=== PATIENT | male | born 1950 | race Caucasian/White ===

== ENCOUNTER 2017-05-12 06:35 | Day surgery (SDC) | payer MEDICARE, OTHER ==
[2017-05-12] MEDS ORDERED: Sodium Chloride 0.9% 1,000 ML IV SCH (07:15)
[2017-05-12] MEDS ORDERED: fentaNYL 100 MCG/2 ML SDV ONE (07:42)
[2017-05-12] MEDS ORDERED: Propofol 200 MG/20 ML SDV ONE (07:42)
[2017-05-12] MEDS ORDERED: Midazolam 1 MG/ML 2 ML SDV ONE (07:42)
--- NOTE | 2017-05-12 11:38 | OR ---
DATE OF PROCEDURE: 05/12/2017 PROCEDURE: Colonoscopy. FINDINGS: 1. Mass at 65 cm (biopsied x8 using cold biopsy forceps). 2. Tattooed at the mass x4 using Violetta ink. COMPLICATION: None. LOSS PREVENTION AND SAFETY MANAGER: None. PREOPERATIVE DIAGNOSIS: Family history of colorectal cancer. POSTOPERATIVE DIAGNOSIS: Family history of colorectal cancer. RISKS: Risks, benefits, alternatives, and limitations including, but not limited to infection, bleeding, and perforation were explained to the patient who wished to proceed. PROCEDURE IN DETAIL: The patient was placed in left lateral decubitus position. Digital rectal exam was performed without abnormality. The scope was introduced and advanced atraumatically to the ileocecal valve. The scope was brought back, and at 65 cm, the mass, which was approximately two-thirds of the circumference, was noted. It was concerning for malignancy and was biopsied multiple times, as described above. Violetta ink was tattooed in all 4 quadrants around it. The scope was brought back and retroflexed. No other abnormalities, except for very minor diverticulosis. The patient tolerated the procedure well. Sandip Kee MD /[id number]
== END 2017-05-12 09:20 | disposition home or self-care (01) ==
LOC: JP.SDS 06:35
PROVIDERS: ATTEND Surgery
DX: Z12.11 Encounter for screening for malignant neoplasm of colon (principal); C18.9 Malignant neoplasm of colon, unspecified; K57.30 Diverticulosis of large intestine without perforation or abscess without bleeding; I10 Essential (primary) hypertension; K21.9 Gastro-esophageal reflux disease without esophagitis; F32.9 Major depressive disorder, single episode, unspecified; E66.9 Obesity, unspecified; Z80.0 Family history of malignant neoplasm of digestive organs
CPT/HCPCS: 45380; 45381; 88305; J2250; J2704; J3010; J7040; 81301; 88341; 88342; 88381; J7030

== ENCOUNTER 2017-06-09 09:41 | Inpatient (IN) | payer MEDICARE, OTHER ==
[~2017-06-09 09:41] MED LIST: Dexamethasone 4 MG/ML SDV ONE; Neostigmine Methylsulfate 1 MG/ML 5 ML Syringe ONE; Ondansetron 4 MG/2 ML SDV ONE; Propofol 200 MG/20 ML SDV ONE; Rocuronium 50 MG/5 ML Vial ONE; Sodium Chloride 0.9% 10 ML ONE; Succinylcholine/Normal Saline 200 MG/10 ML Syringe ONE; fentaNYL 100 MCG/2 ML SDV ONE; fentaNYL 250 MCG/5 ML SDV ONE
[2017-06-09] MEDS ORDERED: Celecoxib 200 MG Cap PO ONE (10:00)
[2017-06-09] MEDS ORDERED: Acetaminophen 500 MG Tab PO ONE (10:00)
[2017-06-09] MEDS ORDERED: Scopolamine 1.5 MG Transdermal Patch TRDERM SCH (10:00)
[2017-06-09] MEDS ORDERED: Gabapentin 300 MG Cap PO ONE (10:00)
[2017-06-09] MEDS ORDERED: Sodium Chloride 0.9% 1,000 ML IV SCH ×2 (10:30→12:30)
[2017-06-09] MEDS ORDERED: Naloxone 0.4 MG/ML SDV IVPUSH PRN ×2 (10:30→22:57)
[2017-06-09] MEDS ORDERED: Midazolam 1 MG/ML 2 ML SDV ONE (11:04)
[2017-06-09] MEDS: ceFAZolin 2 GM in Premix Bag 1 BAG IV ONE ×2 (11:11→11:48)
[2017-06-09] MEDS ORDERED: metroNIDAZOLE/Normal Saline 500 MG in Premix Bag 1 BAG IV ONE (11:30)
[2017-06-09] MEDS ORDERED: Docusate Sodium 100 MG Cap PO PRN (12:10)
[2017-06-09] MEDS ORDERED: Promethazine 25 MG/ML SDV IM PRN (12:10)
[2017-06-09] MEDS ORDERED: fentaNYL 250 MCG/5 ML SDV ONE (12:24)
[2017-06-09] MEDS ORDERED: Lactated Ringers 1,000 ML ONE (12:48)
[2017-06-09] MEDS: hydrOXYzine HCl 100 MG/2 ML SDV IM PRN (14:08)
[2017-06-09] MEDS: fentaNYL 2,500 MCG in Sodium Chloride 0.9% 200 ML EPIDUR SCH (17:32)
[2017-06-09] MEDS: Tamsulosin 0.4 MG Cap.ER PO SCH (20:33)
[2017-06-09] MEDS ORDERED: Tamsulosin 0.4 MG Cap.ER PO SCH (21:00)
[2017-06-09] MEDS ORDERED: Naloxone 0.4 MG/ML SDV IVPUSH STA (22:55)
[2017-06-10] MEDS ORDERED: Naloxone 0.4 MG/ML SDV IVPUSH PRN (08:13)
[2017-06-10] MEDS: fentaNYL 2,500 MCG in Sodium Chloride 0.9% 200 ML EPIDUR SCH (08:21)
[2017-06-10] MEDS ORDERED: diphenhydrAMINE 50 MG/ML SDV IVPUSH PRN (10:44)
--- NOTE | 2017-06-10 10:59 | PN ---
DATE OF SERVICE: 06/10/2017 SUBJECTIVE: The patient is doing very well today. Pain is controlled. No nausea, vomiting, shortness of breath, or chest pain. OBJECTIVE: VITAL SIGNS: Stable. Temperature 96.8, blood pressure 123/64, pulse 87, respirations 16, and 93% on 2 L. HEENT: Pupils are equal. CARDIOVASCULAR: Regular rhythm and rate. RESPIRATORY: Lungs clear to consultation bilaterally. ABDOMEN: Bowel sounds positive. Dressing intact. EXTREMITIES: Full range of motion. LABORATORY RESULTS: White blood cell count of 15.9 and hemoglobin 11. Basic metabolic panel is normal. ASSESSMENT: Status post colon resection. PLAN: We will continue on the fast-track protocol. We will continue with his epidural. Continue with the Flomax, Entereg, and Senokot. Start . Physical Therapy to see today. Sandip Kee MD /[id number]
[2017-06-10] MEDS: Bisacodyl 5 MG Tab PO SCH ×2 (11:33→21:30)
[2017-06-10] MEDS: Sennosides 8.6 MG Tab PO SCH ×2 (11:33→21:30)
[2017-06-10] MEDS: hydrOXYzine HCl 100 MG/2 ML SDV IM PRN (12:48)
[2017-06-10] MEDS ORDERED: Calcium Carbonate 500 MG Tab.Chew PO ONE (18:43)
[2017-06-10] MEDS: Tamsulosin 0.4 MG Cap.ER PO SCH (21:30)
[2017-06-11] MEDS: hydrOXYzine HCl 100 MG/2 ML SDV IM PRN ×2 (01:01→08:29)
[2017-06-11] MEDS: Calcium Carbonate 500 MG Tab.Chew PO PRN ×2 (01:25→08:37)
[2017-06-11] MEDS: Sennosides 8.6 MG Tab PO SCH ×2 (08:37→20:16)
[2017-06-11] MEDS: Bisacodyl 5 MG Tab PO SCH ×2 (08:37→20:16)
[2017-06-11] MEDS: fentaNYL 2,500 MCG in Sodium Chloride 0.9% 200 ML EPIDUR SCH (08:48)
[2017-06-11] MEDS ORDERED: Acetaminophen 1,000 MG in Premix Bag 1 BAG IV PRN (09:12)
[2017-06-11] MEDS ORDERED: Magnesium Hydroxide 400 MG/5 ML Susp 30 ML Cup PO PRN (09:16)
[2017-06-11] MEDS ORDERED: fentaNYL 100 MCG/2 ML SDV IVPUSH PRN (09:32)
[2017-06-11] MEDS: Acetaminophen/oxyCODONE 325-10 MG Tab PO PRN ×2 (09:54→20:15)
[2017-06-11] MEDS: Sodium Chloride 0.9% 1,000 ML IV SCH ×2 (10:07→23:28)
[2017-06-11] MEDS ORDERED: Cyclobenzaprine 10 MG Tab PO PRN (10:56)
[2017-06-11] MEDS: Sertraline 50 MG Tab PO SCH (11:18)
[2017-06-11] MEDS: Fluticasone Propionate Nasal Spray 16 GM Bottle NASBOTH SCH (11:20)
[2017-06-11] MEDS: amLODIPine 5 MG Tab PO SCH (11:20)
[2017-06-11] MEDS: Albuterol/Ipratropium 3.0-0.5 MG/3 ML Neb Soln NEB PRN ×2 (14:30→20:16)
[2017-06-11] MEDS: Simvastatin 20 MG Tab PO SCH (20:16)
[2017-06-11] MEDS: Tamsulosin 0.4 MG Cap.ER PO SCH (20:16)
[2017-06-11] MEDS: Enoxaparin 40 MG/0.4 ML Syringe SUBCUT SCH (20:16)
[2017-06-12] MEDS: Acetaminophen/oxyCODONE 325-10 MG Tab PO PRN ×3 (02:46→20:42)
[2017-06-12] MEDS: Albuterol/Ipratropium 3.0-0.5 MG/3 ML Neb Soln NEB PRN ×2 (07:08→19:29)
[2017-06-12] MEDS: Bisacodyl 5 MG Tab PO SCH (08:19)
[2017-06-12] MEDS: Fluticasone Propionate Nasal Spray 16 GM Bottle NASBOTH SCH (08:19)
[2017-06-12] MEDS: Sertraline 50 MG Tab PO SCH (08:24)
[2017-06-12] MEDS: amLODIPine 5 MG Tab PO SCH (08:24)
[2017-06-12] MEDS: Sennosides 8.6 MG Tab PO SCH ×2 (08:28→20:41)
[2017-06-12] MEDS ORDERED: Furosemide 20 MG/2 ML VIAL IVPUSH ONE (12:15)
--- NOTE | 2017-06-12 13:06 | PN ---
DATE OF SERVICE: 06/11/2017 SUBJECTIVE: The patient is doing very well. Pain is well controlled. No nausea, vomiting, shortness of breath, or chest pain. The patient is having bowel movements, and the pain is well controlled. OBJECTIVE: VITAL SIGNS: Stable. CARDIOVASCULAR: Regular in rate. RESPIRATORY: Lungs clear to consultation bilaterally. ABDOMEN: Bowel sounds positive. Incision healing well. ASSESSMENT: Status post hemicolectomy. PLAN: We will work on increasing diet and activity today. We will start his home medications and continue to work on his minimal oxygen desaturation which includes a chest x- ray today. Sandip Kee MD /[id number]
[2017-06-12] MEDS: Calcium Carbonate 500 MG Tab.Chew PO PRN (18:43)
[2017-06-12] MEDS: Enoxaparin 40 MG/0.4 ML Syringe SUBCUT SCH (20:41)
[2017-06-12] MEDS: Simvastatin 20 MG Tab PO SCH (20:41)
[2017-06-12] MEDS: Tamsulosin 0.4 MG Cap.ER PO SCH (20:41)
[2017-06-13] MEDS: Fluticasone Propionate Nasal Spray 16 GM Bottle NASBOTH SCH (09:54)
[2017-06-13] MEDS: Sertraline 50 MG Tab PO SCH (09:55)
[2017-06-13] MEDS: amLODIPine 5 MG Tab PO SCH (09:56)
[2017-06-13] MEDS: Sennosides 8.6 MG Tab PO SCH (09:56)
[2017-06-13] MEDS: Acetaminophen/oxyCODONE 325-10 MG Tab PO PRN (13:39)
--- NOTE | 2017-06-13 20:50 | PN ---
DATE OF SERVICE: 06/13/2017 SUBJECTIVE: The patient is doing very well today. He requests to leave. His pain is well controlled. No nausea, vomiting, shortness of breath, or chest pain. OBJECTIVE: VITAL SIGNS: Stable. He is afebrile per nursing report. CARDIOVASCULAR: Regular rhythm and rate. RESPIRATORY: Lungs clear to consultation bilaterally. ABDOMEN: Bowel sounds positive. Incision is healing well. ASSESSMENT: Status post colon resection. PLAN: The patient is still on 1 L of oxygen, therefore the plan would be, we will discontinue all oxygen today and see how his saturations are affected. Both, the patient, nursing staff, and objective identifiers show that he continues to show significant improvement with respect to his oxygen level. The patient request to leave; however, at this point, we will keep him around for the day and see if his saturations remain greater than 90%. If not, he may remain to stay. If he does go home today, he was instructed on signs and symptoms of respiratory failure and calling 911 or contact the emergency room immediately. He understands these risks and we will evaluate him later today. Sandip Kee MD /[id number]
--- NOTE | 2017-06-14 09:42 | PN ---
DATE OF SERVICE: 06/12/2017 SUBJECTIVE: The patient continues to do well except for requirement to keep 2 L of oxygen. At present, no nausea, vomiting, shortness of breath, or chest pain. OBJECTIVE: VITAL SIGNS: Stable. He is afebrile. CARDIOVASCULAR: Regular rhythm and rate. RESPIRATORY: Lungs are clear to consultation bilaterally. ABDOMEN: Bowel sounds positive. Incision is healing well. No distention, rebound, or guarding. ASSESSMENT: Status post hemicolectomy. PLAN: We will work on incentive spirometry. Have Respiratory Therapy see today. Recheck his laboratories. His chest x-ray was good. We will continue to delineate this as acceptable, but low saturations, and once we determined the etiology of this, he probably will be discharged. Sandip Kee MD /[id number]
--- NOTE | 2017-06-14 10:39 | DISCH ---
DISCHARGE DIAGNOSIS: Status post colon resection. SUMMARY OF HOSPITAL COURSE: A pleasant 67-year-old male who underwent an uneventful hemicolectomy. On postoperative day 1, he remained stable and had epidural for pain. The patient underwent the enhanced recovery after surgery protocol. Also, on postop day 1, he is tolerating a regular diet. For the next 2 days, he continued to progress and advance. His epidural was discontinued on postop day 2, and the patient was treated with p.o. pain medications. He continued to have significant improvement. The patient did have marginal oxygen saturations, which is essentially 1 to 2 L of oxygen requirement to keep his saturations greater than 90%. On his last hospital day, the patient was kept for approximately 8 hours without oxygen and did not develop any desaturation. At this point, he was determined as safe to be discharged. However, he was instructed with any shortness of breath, he is to call 911 immediately. The patient understands these risks along with his family and prefers to leave at this time. FOLLOWUP: With Surgery in 7 to 14 days. ACTIVITY: No lifting greater than 30 pounds x30 days. DISCHARGE MEDICATIONS: Please see MAR, but include his home medications and Percocet for pain.
--- NOTE | 2017-06-15 14:55 | OR ---
DATE OF PROCEDURE: 06/09/2017 PROCEDURES PERFORMED: 1. Colon resection, transverse colon (58033). 2. Mobilization of splenic flexure (15646). COMPLICATIONS: None. AIR COMPRESSOR ENGINEER: None. PREOPERATIVE DIAGNOSIS: Colorectal cancer. POSTOPERATIVE DIAGNOSIS: Colorectal cancer. RISKS: Risks, benefits, alternatives, and limitations including, but not limited to infection, bleeding, and perforation were explained to the patient, who wished to proceed. We also discussed fistula formation, chronic wound formation, anastomotic failure, cardiovascular compromise including , and other risks not listed here. ANESTHESIA: Epidural/general. PROCEDURE IN DETAIL: The patient was placed in a supine position. A midline abdominal incision was made. This was approximately 8 cm in size and would be opened slightly superior and inferiorly to enhance visualization. This was performed with a 15 blade and 2 Bobby clamps were used to elevate the abdomen to allow entry with electrocautery. No evidence of trauma was noted during entry. The area of the colon to be resected was identified by its previous tattooing with Violetta ink. This was in the transverse colon. Mobilization began by mobilization of the right gutter and mobilization of the spleen. This was completely mobilized off the spleen to facilitate a tension-free anastomosis. Once this was performed, blue-load stapler was used to transect the colon, and white loads were used to en bloc resect the associated mesentery. In addition to this, the omentum associated with this aspect of the colon was also resected en bloc fashion. Once this was performed, a [id number] functional end-to-end anastomosis was performed by creating a defect in the antimesenteric side of the colon and two 60-mm blue-load staplers creating a large anastomosis. Allis clamps were then used to reapproximate the defect and then subsequently closed with a blue-load stapler. Mesenteric stitch was then placed to close any potential internal hernia defects. Of note, the duodenum was identified during this procedure, it was deflected away, but other than that it was not interacted with in any way. Also, of note, when the specimen was resected, this was opened up on the back table and greater than 5 cm margin was measured. Tisseel was then used on the anastomotic sites. The abdomen was thoroughly irrigated. Gloves and gowns were again changed for, I believe, the third time. The liver was swept and no abnormalities were noted. No studding was noted during inspection of the abdomen. The fascia was then closed with #1 Vicryl in a running suture x2, and the skin was closed with amanda. No drains were used. Dressings were applied. The patient tolerated the procedure well. Sandip Kee MD /[id number]
== END 2017-06-13 14:10 | disposition home or self-care (01) | DRG 331 ==
LOC: JP.SDS 09:41 → JP.SDSSCHI 09:41 → EDSTATUS 12:45 → JP.2SS 14:45
PROVIDERS: ADMIT Surgery; ATTEND Surgery
PROC: 0DTG0ZZ Resection of Left Large Intestine, Open Approach (ICD-10-PCS; principal; 2017-06-09)
PROC: 0DNM0ZZ Release Descending Colon, Open Approach (ICD-10-PCS; 2017-06-09)
PROC: 0DNL0ZZ Release Transverse Colon, Open Approach (ICD-10-PCS; 2017-06-09)
DX: C18.4 Malignant neoplasm of transverse colon (principal); R09.02 Hypoxemia; I10 Essential (primary) hypertension; Z79.891 Long term (current) use of opiate analgesic; F32.9 Major depressive disorder, single episode, unspecified; E78.5 Hyperlipidemia, unspecified; M54.9 Dorsalgia, unspecified; G89.29 Other chronic pain; Z86.19 Personal history of other infectious and parasitic diseases; Z87.891 Personal history of nicotine dependence; Z98.1 Arthrodesis status; Z80.0 Family history of malignant neoplasm of digestive organs
CPT/HCPCS: 36415; 71046; 80048; 85025; 85027; 86850; 86900; 86901; 86920; 86922; 88309; 88312; 94640; 94762; 97110-GP; 97161-GP; A9270-GY; J0131; J0690; J1100; J1650; J1940; J2250; J2310; J2405; J2704; J3010; J3410; J7030; J7050; J7120; J7620

== ENCOUNTER 2017-07-21 07:05 | Day surgery (SDC) | payer MEDICARE, OTHER ==
[2017-07-21] MEDS: Bupivacaine 0.5% 50 ML MDV ONE ×2 (07:06→08:50)
[2017-07-21] MEDS: Lidocaine 1% with EPINEPHrine 1:100,000 50 ML MDV ONE ×2 (07:07→08:50)
[2017-07-21] MEDS ORDERED: Midazolam 1 MG/ML 2 ML SDV ONE (07:15)
[2017-07-21] MEDS ORDERED: fentaNYL 100 MCG/2 ML SDV ONE (07:15)
[2017-07-21] MEDS ORDERED: Propofol 200 MG/20 ML SDV ONE ×3 (07:15→09:10)
[2017-07-21] MEDS ORDERED: Lactated Ringers 1,000 ML IV SCH (07:30)
[2017-07-21] MEDS ORDERED: ceFAZolin 2 GM in Premix Bag 1 BAG IV ONE (08:15)
--- NOTE | 2017-07-21 11:12 | CR ---
Left subclavian catheter. Heart size upper limits of normal. No pneumothorax. No focal consolidation.
--- NOTE | 2017-07-21 13:23 | OR ---
DATE OF PROCEDURE: 07/21/2017 PROCEDURE: Port-A-Cath, left subclavian. COMPLICATIONS: None. DOG SITTER: None. ANESTHESIA: MAC/local. RISKS: Risks, benefits, alternatives, and limitations including, but not limited to infection, bleeding, DVT, and pulmonary embolism were explained to the patient who wished to proceed. PREOPERATIVE DIAGNOSIS: Colorectal cancer. POSTOPERATIVE DIAGNOSIS: Colorectal cancer. PROCEDURE IN DETAIL: The patient was placed in a supine position. The left subclavian was accessed first on the second pass. This was accessed using a micropuncture kit. This was then exchanged for a 30,000th wire under direct fluoroscopic guidance. Additional lidocaine was used to anesthetize, and a pocket was created in the subclavian area subcutaneously. The dilator was introduced under fluoroscopic guidance. The tubing was inserted and placed in the superior vena cava. This was then attached to the reservoir and sutured into place in 3 spots. The 3-0 Vicryl was used to close the subcutaneous space and 4-0 Vicryl was used to close the skin. Dermabond was applied. The Port-A-Cath was able to be flushed and aspirated at this point. The patient tolerated the procedure well. Sandip Kee MD /[id number]
== END 2017-07-21 10:37 | disposition home or self-care (01) ==
LOC: JP.SDS 07:05
PROVIDERS: ATTEND Surgery
DX: C19 Malignant neoplasm of rectosigmoid junction (principal); I10 Essential (primary) hypertension; E78.5 Hyperlipidemia, unspecified; K21.9 Gastro-esophageal reflux disease without esophagitis; F32.9 Major depressive disorder, single episode, unspecified; E66.9 Obesity, unspecified; Z87.891 Personal history of nicotine dependence
CPT/HCPCS: 36561; 71045; C1788; C1894; J0690; J1642; J2250; J2704; J3010; J7120

== ENCOUNTER 2018-08-25 07:34 | Day surgery (SDC) | payer MEDICARE ==
[2018-08-25] MEDS: Sodium Chloride 0.9% 1,000 ML IV SCH (08:10)
[2018-08-25] MEDS ORDERED: fentaNYL 100 MCG/2 ML SDV ONE (08:19)
[2018-08-25] MEDS ORDERED: Propofol 200 MG/20 ML SDV ONE (08:19)
[2018-08-25] MEDS ORDERED: Midazolam 1 MG/ML 2 ML SDV ONE (08:27)
--- NOTE | 2018-08-28 13:56 | OR ---
DATE OF PROCEDURE: 08/25/2018 PROCEDURE: Colonoscopy. FINDINGS: Normal colonoscopy with normal anastomosism, (no evidence of colonic malignancy recurrence). COMPLICATIONS: None. SURGEON: Sandip Kee MD PHYSICAL THERAPY NURSE: None. PREOPERATIVE DIAGNOSIS: History of colorectal cancer. POSTOPERATIVE DIAGNOSIS: History of colorectal cancer. RISKS: Risks, benefits, alternatives, and limitations including, but not limited to infection, bleeding, and perforation were explained to the patient who wished to proceed. PROCEDURE IN DETAIL: The patient was placed in left lateral decubitus position. Digital rectal exam was performed without abnormality. The scope was introduced atraumatically into the ileocecal valve. The scope was brought back through the ascending, transverse, and descending colon, and retroflexed. Where the previous colon resection was, no abnormalities were noted. The patient tolerated the procedure well. Sandip Kee MD /[id number]
== END 2018-08-25 09:56 | disposition home or self-care (01) ==
LOC: JP.SDS 07:34
PROVIDERS: ATTEND Surgery
DX: Z12.11 Encounter for screening for malignant neoplasm of colon (principal); I50.9 Heart failure, unspecified; I71.4 Abdominal aortic aneurysm, without rupture; K21.9 Gastro-esophageal reflux disease without esophagitis; F32.9 Major depressive disorder, single episode, unspecified; B19.20 Unspecified viral hepatitis C without hepatic coma; Z90.49 Acquired absence of other specified parts of digestive tract; Z95.1 Presence of aortocoronary bypass graft; Z85.038 Personal history of other malignant neoplasm of large intestine; Z87.891 Personal history of nicotine dependence
CPT/HCPCS: G0105; J2250; J2704; J3010; J7030

== ENCOUNTER 2019-02-20 06:35 | Day surgery (SDC) | payer MEDICARE ==
[2019-02-20] MEDS: Sodium Chloride 0.9% 1,000 ML IV SCH (06:54)
[2019-02-20] MEDS ORDERED: Midazolam 1 MG/ML 2 ML SDV ONE (07:12)
[2019-02-20] MEDS ORDERED: fentaNYL 100 MCG/2 ML SDV ONE (07:12)
[2019-02-20] MEDS ORDERED: Propofol 200 MG/20 ML SDV ONE (07:12)
[2019-02-20] MEDS: ceFAZolin 2 GM in Sodium Chloride 0.9% 50 ML IV ONE (07:35)
[2019-02-20] MEDS: Bupivacaine 0.5% 50 ML MDV ONE (07:58)
[2019-02-20] MEDS: Lidocaine 1% with EPINEPHrine 1:100,000 50 ML MDV ONE (07:58)
--- NOTE | 2019-02-20 12:45 | OR ---
DATE OF PROCEDURE: 02/20/2019 SURGEON: Sandip Kee MD PROCEDURE: Port-A-Cath removal. COMPLICATIONS: None. UX LEAD: None. ANESTHESIA: MAC/local. RISKS: Risks, benefits, alternatives, and limitations including, but not limited to infection, bleeding, and chronic wound formation were explained to the patient, and he wished to proceed. PROCEDURE IN DETAIL: The patient was placed in a supine position. The previous incision was anesthetized with lidocaine mixed with Marcaine. A knife was then used to open the previous incision, and Metzenbaum scissors was used to find and mobilize the device. This was then removed. Direct pressure was held for 5 minutes. The wound was then closed with 3- 0 Vicryl and 4-0 Vicryl interrupted running sutures after irrigation, and Dermabond was applied. The patient tolerated the procedure well. Sandip Kee MD /[id number]
== END 2019-02-20 09:45 | disposition home or self-care (01) ==
LOC: JP.SDS 06:35
PROVIDERS: ATTEND Surgery
DX: Z45.2 Encounter for adjustment and management of vascular access device (principal); I25.10 Atherosclerotic heart disease of native coronary artery without angina pectoris; I11.0 Hypertensive heart disease with heart failure; I50.9 Heart failure, unspecified; K21.9 Gastro-esophageal reflux disease without esophagitis; Z95.1 Presence of aortocoronary bypass graft
CPT/HCPCS: J0690; J2250; J2704; J3010; J3490; J7030; J7050

== ENCOUNTER 2020-10-13 08:29 | Day surgery (SDC) | payer MEDICARE ==
[2020-10-13] MEDS ORDERED: Sodium Chloride 0.9% 1,000 ML IV SCH (09:00)
[2020-10-13] MEDS ORDERED: Midazolam 1 MG/ML 2 ML SDV ONE (09:39)
[2020-10-13] MEDS ORDERED: Propofol 200 MG/20 ML SDV ONE (09:39)
[2020-10-13] MEDS ORDERED: fentaNYL 100 MCG/2 ML SDV ONE (09:39)
--- NOTE | 2020-10-13 13:00 | OR ---
DATE OF PROCEDURE: 10/13/2020 SURGEON: Sandip Kee MD PROCEDURE: Colonoscopy. FINDINGS: Normal colonoscopy. PREOPERATIVE DIAGNOSIS: History of colorectal cancer. POSTOPERATIVE DIAGNOSIS: History of colorectal cancer. RISKS: Risks, benefits, alternatives, and limitations including, but not limited to infection, bleeding, perforation, false positives, false negatives were explained to the patient and he wished to proceed. PROCEDURE IN DETAIL: The patient was placed in left lateral decubitus position. Digital rectal exam was performed without abnormality. Scope was introduced and advanced atraumatically to the ileocecal valve. As the scope was brought back, the colonic anastomosis was identified. There was no inflammation. No polyps. No mass effect. This appeared to be completely benign. The remainder of the colon was inspected without abnormality. The prep was acceptable with approximately 90% of the luminal surface could be seen. No abnormalities on retroflexion. Greater than 8 minutes was spent removing the scope. The patient tolerated the procedure well. Sandip Kee MD /[id number]
== END 2020-10-13 11:20 | disposition home or self-care (01) ==
LOC: JP.SDS 08:29
PROVIDERS: ATTEND Surgery
DX: Z12.11 Encounter for screening for malignant neoplasm of colon (principal); I11.0 Hypertensive heart disease with heart failure; I50.9 Heart failure, unspecified; I25.10 Atherosclerotic heart disease of native coronary artery without angina pectoris; E66.9 Obesity, unspecified; Z85.038 Personal history of other malignant neoplasm of large intestine; Z68.29 Body mass index [BMI] 29.0-29.9, adult
CPT/HCPCS: G0105; J2250; J2704; J3010; J7030

== ENCOUNTER 2022-03-29 10:10 | Inpatient (IN) | payer MEDICARE ==
[2022-03-29] MEDS ORDERED: Sodium Chloride 0.9% 10 ML Syringe FLUSH PRN (11:06)
[2022-03-29] MEDS ORDERED: Iopamidol 755 Mg/ML 100 ML Bottle IV SCH (11:30)
[2022-03-29] MEDS ORDERED: Sodium Chloride 0.9% 100 ML IV SCH (11:30)
[2022-03-29] MEDS ORDERED: Vancomycin 2 GM in Sodium Chloride 0.9% 500 ML IV ONE ×2 (13:11→14:30)
[2022-03-29] MEDS ORDERED: metroNIDAZOLE/Normal Saline 500 MG in Premix Bag 1 BAG IV ONE (13:12)
[2022-03-29] MEDS ORDERED: methylPREDNISolone Sodium Succinate 40 MG/1 ML SDV IVPUSH ONE (14:17)
[2022-03-29] MEDS ORDERED: methylPREDNISolone Sodium Succinate 125 MG/2 ML SDV ONE (16:33)
[2022-03-29] MEDS ORDERED: Cyclobenzaprine 10 MG Tab PO PRN (16:55)
[2022-03-29] MEDS ORDERED: Acetaminophen 325 MG Tab PO PRN ×2 (17:01→17:08)
[2022-03-29] MEDS ORDERED: LORazepam 2 MG/ML SDV IVPUSH PRN (17:01)
[2022-03-29] MEDS ORDERED: Magnesium Hydroxide 400 MG/5 ML Susp 30 ML Cup PO PRN (17:01)
[2022-03-29] MEDS ORDERED: Morphine 2 MG/ML SYRINGE IVPUSH PRN (17:01)
[2022-03-29] MEDS ORDERED: Ondansetron 4 MG/2 ML SDV IV PRN (17:01)
[2022-03-29] MEDS ORDERED: Ondansetron 4 MG Tab.DIS PO PRN (17:01)
[2022-03-29] MEDS: guaiFENesin/Dextromethorphan 100-10 MG/5 ML Soln 10 ML Cup PO PRN (20:10)
[2022-03-29] MEDS: Zolpidem 5 MG Tab PO SCH (20:10)
[2022-03-29] MEDS: Carvedilol 3.125 MG Tab PO SCH (20:11)
[2022-03-29] MEDS: busPIRone 10 MG Tab PO SCH (20:21)
[2022-03-29] MEDS: Rosuvastatin 10 MG Tab PO SCH (20:21)
[2022-03-29] MEDS: Venlafaxine 75 MG Tab PO SCH ×2 (20:22→20:52)
[2022-03-29] MEDS: Furosemide 20 MG Tab PO SCH (20:30)
[2022-03-29] MEDS ORDERED: Non-Formulary Medication 1 Each (Rosuvastatin [Crestor] 40 MG Tablet) PO SCH (21:00)
[2022-03-29] MEDS ORDERED: Non-Formulary Medication 1 Each (Carvedilol [Carvedilol] 6.25 MG Tablet) PO SCH (21:00)
[2022-03-29] MEDS ORDERED: Non-Formulary Medication 1 Each (Atorvastatin [Lipitor] 80 MG Tablet) PO SCH (21:00)
[2022-03-29] MEDS: metroNIDAZOLE/Normal Saline 500 MG in Premix Bag 1 BAG IV SCH (21:18)
[2022-03-30] MEDS ORDERED: methylPREDNISolone Sodium Succinate 40 MG/1 ML SDV IVPUSH SCH (05:15)
[2022-03-30] MEDS: metroNIDAZOLE/Normal Saline 500 MG in Premix Bag 1 BAG IV SCH ×3 (05:25→21:01)
[2022-03-30 05:26] LABS: ESTIMATED GFR 90 mL/min (>60)
[2022-03-30] MEDS: guaiFENesin/Dextromethorphan 100-10 MG/5 ML Soln 10 ML Cup PO PRN ×3 (06:12→20:55)
[2022-03-30] MEDS: Pantoprazole 40 MG Tab.CR PO SCH (08:13)
[2022-03-30] MEDS: Furosemide 20 MG Tab PO SCH ×2 (08:13→14:12)
[2022-03-30] MEDS: Carvedilol 3.125 MG Tab PO SCH ×2 (08:14→20:56)
[2022-03-30] MEDS: busPIRone 10 MG Tab PO SCH ×2 (08:14→20:56)
[2022-03-30] MEDS: Losartan 50 MG Tab PO SCH (08:14)
[2022-03-30] MEDS: Tamsulosin 0.4 MG Cap.ER PO SCH (08:15)
[2022-03-30] MEDS: Fluticasone NASAL Spray 16 GM Bottle NAS SCH (08:15)
[2022-03-30] MEDS: Venlafaxine 75 MG Tab PO SCH ×2 (08:15→20:56)
[2022-03-30] MEDS: Isosorbide Mononitrate 30 MG Tab.ER PO SCH (08:16)
[2022-03-30] MEDS: Aspirin 81 MG Tab.EC PO SCH (08:16)
[2022-03-30] MEDS: Potassium Chloride 20 MEQ Tab.ER PO SCH (08:16)
[2022-03-30] MEDS ORDERED: Non-Formulary Medication 1 Each (Omeprazole [Omeprazole] 20 MG Capsule.Dr) PO SCH (09:00)
[2022-03-30] MEDS ORDERED: Non-Formulary Medication 1 Each (Sertraline [Zoloft] 100 MG Tablet) PO SCH (09:00)
[2022-03-30] MEDS: Zolpidem 5 MG Tab PO SCH (20:55)
[2022-03-30] MEDS: Rosuvastatin 10 MG Tab PO SCH (20:56)
[2022-03-30] MEDS ORDERED: busPIRone 10 MG Tab PO SCH (21:00)
[2022-03-30] MEDS ORDERED: Venlafaxine 75 MG Tab PO SCH (21:00)
[2022-03-31] MEDS: guaiFENesin/Dextromethorphan 100-10 MG/5 ML Soln 10 ML Cup PO PRN ×3 (03:17→21:14)
[2022-03-31 05:19] LABS: ESTIMATED GFR 79 mL/min (>60)
[2022-03-31] MEDS: metroNIDAZOLE/Normal Saline 500 MG in Premix Bag 1 BAG IV SCH ×3 (05:31→21:26)
[2022-03-31] MEDS: Pantoprazole 40 MG Tab.CR PO SCH (07:25)
[2022-03-31] MEDS: Furosemide 40 MG Tab PO SCH ×2 (07:25→13:24)
[2022-03-31] MEDS: busPIRone 10 MG Tab PO SCH ×2 (08:20→21:16)
[2022-03-31] MEDS: methylPREDNISolone Sodium Succinate 40 MG/1 ML SDV IVPUSH SCH (08:20)
[2022-03-31] MEDS: Isosorbide Mononitrate 30 MG Tab.ER PO SCH (08:20)
[2022-03-31] MEDS: Aspirin 81 MG Tab.EC PO SCH (08:20)
[2022-03-31] MEDS: Venlafaxine 75 MG Tab PO SCH ×2 (08:20→21:16)
[2022-03-31] MEDS: Carvedilol 3.125 MG Tab PO SCH ×2 (08:20→21:17)
[2022-03-31] MEDS: Potassium Chloride 20 MEQ Tab.ER PO SCH (08:20)
[2022-03-31] MEDS: Tamsulosin 0.4 MG Cap.ER PO SCH (08:20)
[2022-03-31] MEDS: Losartan 50 MG Tab PO SCH (08:20)
[2022-03-31] MEDS: Fluticasone NASAL Spray 16 GM Bottle NAS SCH (08:26)
[2022-03-31] MEDS ORDERED: Iopamidol 612 MG/ML 100 ML Bottle IV PRN (08:50)
[2022-03-31] MEDS ORDERED: Sodium Chloride 0.9% 50 ML IV SCH (09:00)
[2022-03-31] MEDS: Zolpidem 5 MG Tab PO SCH (21:14)
[2022-03-31] MEDS: Rosuvastatin 10 MG Tab PO SCH (21:16)
[2022-04-01 04:50] LABS: ESTIMATED GFR 79 mL/min (>60)
[2022-04-01] MEDS: metroNIDAZOLE/Normal Saline 500 MG in Premix Bag 1 BAG IV SCH (05:05)
[2022-04-01] MEDS: Pantoprazole 40 MG Tab.CR PO SCH (07:51)
[2022-04-01] MEDS: Furosemide 40 MG Tab PO SCH (07:52)
[2022-04-01] MEDS: busPIRone 10 MG Tab PO SCH (08:50)
[2022-04-01] MEDS: Carvedilol 3.125 MG Tab PO SCH (08:50)
[2022-04-01] MEDS: Losartan 50 MG Tab PO SCH (08:54)
[2022-04-01] MEDS: Venlafaxine 75 MG Tab PO SCH (08:54)
[2022-04-01] MEDS: Aspirin 81 MG Tab.EC PO SCH (08:57)
[2022-04-01] MEDS: Fluticasone NASAL Spray 16 GM Bottle NAS SCH (08:57)
[2022-04-01] MEDS: Potassium Chloride 20 MEQ Tab.ER PO SCH (08:58)
[2022-04-01] MEDS: Tamsulosin 0.4 MG Cap.ER PO SCH (08:58)
[2022-04-01] MEDS: Isosorbide Mononitrate 30 MG Tab.ER PO SCH (08:58)
[2022-04-01] MEDS: methylPREDNISolone Sodium Succinate 40 MG/1 ML SDV IVPUSH SCH (09:33)
== END 2022-04-01 10:00 | disposition home or self-care (01) | DRG 154 ==
LOC: JP.ED 10:10 → JP.MS 15:46
PROVIDERS: ADMIT Hospitalist; ATTEND Hospitalist
DX: K11.3 Abscess of salivary gland (principal); J18.9 Pneumonia, unspecified organism; E87.1 Hypo-osmolality and hyponatremia; I50.32 Chronic diastolic (congestive) heart failure; C18.9 Malignant neoplasm of colon, unspecified; K11.21 Acute sialoadenitis; I10 Essential (primary) hypertension; H54.7 Unspecified visual loss; I25.10 Atherosclerotic heart disease of native coronary artery without angina pectoris; H91.90 Unspecified hearing loss, unspecified ear; J34.2 Deviated nasal septum; E78.00 Pure hypercholesterolemia, unspecified; I11.0 Hypertensive heart disease with heart failure; K21.9 Gastro-esophageal reflux disease without esophagitis; G89.29 Other chronic pain; R06.02 Shortness of breath; M54.9 Dorsalgia, unspecified; M54.2 Cervicalgia; M19.90 Unspecified osteoarthritis, unspecified site; F41.9 Anxiety disorder, unspecified; F32.A Depression, unspecified; B18.2 Chronic viral hepatitis C; N40.0 Benign prostatic hyperplasia without lower urinary tract symptoms; G47.00 Insomnia, unspecified; Z20.822 Contact with and (suspected) exposure to COVID-19; Z79.899 Other long term (current) drug therapy; Z95.1 Presence of aortocoronary bypass graft; Z79.82 Long term (current) use of aspirin; Z87.01 Personal history of pneumonia (recurrent); Z86.010 Personal history of colon polyps; Z87.442 Personal history of urinary calculi; Z90.89 Acquired absence of other organs; Z98.1 Arthrodesis status; Z98.890 Other specified postprocedural states; Z87.891 Personal history of nicotine dependence
CPT/HCPCS: 36415; 70491 ×2; 71046 ×2; 71275 ×2; 80048; 83880; 84484; 85025; 86140; 93005; 96365; 96367; 99285; J3370; J3490 ×4; J7040; Q9967; 80053; 83735; 85027; 90662; 96366; 96375; A9270-GY; G0008; J2920; U0002

== ENCOUNTER 2023-10-07 07:23 | Day surgery (SDC) | payer MEDICARE ==
[~2023-10-07 07:23] MED LIST changes: -Dexamethasone 4 MG/ML SDV ONE; -Neostigmine Methylsulfate 1 MG/ML 5 ML Syringe ONE; -Ondansetron 4 MG/2 ML SDV ONE; -Rocuronium 50 MG/5 ML Vial ONE; -Sodium Chloride 0.9% 10 ML ONE; -Succinylcholine/Normal Saline 200 MG/10 ML Syringe ONE; -fentaNYL 250 MCG/5 ML SDV ONE
[2023-10-07] MEDS: Lactated Ringers 1,000 ML IV SCH (07:44)
== END 2023-10-07 09:40 | disposition home or self-care (01) ==
LOC: JP.SDS 07:23
PROVIDERS: ATTEND Surgery
DX: Z12.11 Encounter for screening for malignant neoplasm of colon (principal); I11.0 Hypertensive heart disease with heart failure; I50.22 Chronic systolic (congestive) heart failure; E78.5 Hyperlipidemia, unspecified; K21.9 Gastro-esophageal reflux disease without esophagitis; I25.10 Atherosclerotic heart disease of native coronary artery without angina pectoris; Z95.5 Presence of coronary angioplasty implant and graft; Z85.038 Personal history of other malignant neoplasm of large intestine
CPT/HCPCS: G0105; J2704; J3010; J7120; 00811-QZ

== ENCOUNTER 2024-12-31 08:24 | Day surgery (SDC) | payer MEDICARE ==
[2024-12-31] MEDS: Lactated Ringers 1,000 ML IV SCH (09:59)
[2024-12-31] MEDS ORDERED: Propofol 200 MG/20 ML SDV ONE (10:39)
[2024-12-31] MEDS ORDERED: fentaNYL 50 MCG/ML SDV ONE (10:40)
== END 2024-12-31 12:03 | disposition home or self-care (01) ==
LOC: JP.SDS 08:24
PROVIDERS: ATTEND Surgery
DX: Z12.11 Encounter for screening for malignant neoplasm of colon (principal); I11.0 Hypertensive heart disease with heart failure; I50.9 Heart failure, unspecified; K21.9 Gastro-esophageal reflux disease without esophagitis; F32.A Depression, unspecified; Z85.038 Personal history of other malignant neoplasm of large intestine; Z79.899 Other long term (current) drug therapy
CPT/HCPCS: 00812-QZ; J2704; J3010; J7120